=== PATIENT | female | born 1940 | race American Indian/Alaskan Native ===

== ENCOUNTER 2020-05-30 09:25 | Emergency (ER) | payer MEDICARE ==
[2020-05-30 10:23] VITALS: BP 177/78
[2020-05-30] MEDS ORDERED: ACETAMINOPHEN 325 MG TAB PO ONE (12:28)
--- NOTE | 2020-05-30 13:23 | XRay Report ---
CLINICAL DATA: left knee pain TECHNICAL DATA: Three views of the knee were obtained AP, lateral, and patella. FINDINGS: Bone mineralization is normal. There is mild narrowing of the femorotibial articulation predominantly involving the medial component. The patellofemoral articulation demonstrates severe narrowing. Osteo phyte formation is present. No evidence of a fracture or dislocation. IMPRESSION: Moderate to severe degenerative changes of the knee. Signer Name: Anand Waterman MD Signed: 05/30/2020 1:19 PM Workstation Name: [id number]
--- NOTE | 2020-05-30 13:24 | XRay Report ---
ABDOMEN 3 VIEW(S) INCLUDING CHEST INDICATION / CLINICAL INFORMATION: constipation. COMPARISON: None available. FINDINGS: SUPPORT DEVICES: None. HEART / MEDIASTINUM: No significant abnormality. LUNGS / PLEURA: Bronchovascular markings are prominent No significant pulmonary or pleural abnormalit y. No pneumothorax BOWEL: No dilated bowel. FREE AIR / EXTRALUMINAL GAS: None seen. CALCIFICATIONS: No significant abnormal calcifications. SKELETAL STRUCTURES: No significant abnormality. IMPRESSION: 1. No significant abnormality. Signer Name: Anand Waterman MD Signed: 05/30/2020 1:20 PM Workstation Name: [id number]
[2020-05-30] MEDS ORDERED: MORPHINE 2 MG/1 ML INJ IV ONE (13:33)
[2020-05-30] MEDS ORDERED: SODIUM CHLORIDE 0.9% 500 ML 500 ML IV ONE (13:33)
[2020-05-30] MEDS ORDERED: ONDANSETRON 4 MG/2 ML INJ IV ONE (13:33)
[2020-05-30 13:57] LABS: Basophils # (Auto) 0.1 K/mm3 (0.0-0.1); Basophils % (Auto) 1.2 % (0.0-1.8); Eosinophils # (Auto) 0.1 K/mm3 (0.0-0.4); Eosinophils % (Auto) 1.1 % (0.0-4.3); Hematocrit 40.8 % (30.3-42.9); Hemoglobin 13.4 gm/dl (10.1-14.3); Lymphocytes # (Auto) 2.4 K/mm3 (1.2-5.4); Lymphocytes % (Auto) 29.2 % (13.4-35.0); Mean Corpuscular HGB Conc 33 % (30-34); Monocytes # (Auto) 0.7 K/mm3 (0.0-0.8); Monocytes % (Auto) 8.4 % (0.0-7.3); Platelet Count 251 K/mm3 (140-440); Red Blood Count 5.85 M/mm3 (3.65-5.03); Red Cell Distribution Width 17.1 % (13.2-15.2)
[2020-05-30 14:10] LABS: Mean Corpuscular Volume 70 fl (79-97)
[2020-05-30 14:21] LABS: Alanine Aminotransferase 9 units/L (7-56); Albumin 4.4 g/dL (3.9-5); BUN/Creatinine Ratio 18; Blood Urea Nitrogen 14 mg/dL (7-17); Hemolysis Index 7
[2020-05-30 14:32] LABS: Bilirubin,Direct < 0.2 mg/dL (0-0.2)
[2020-05-30 15:04] LABS: Bacteria,Urine 1+ /HPF (Negative); Bilirubin,Urine NEG (Negative); Blood,Urine NEG (Negative); Color,Urine Straw (Yellow); Protein,Urine <15 mg/dL mg/dL (Negative); Urobilinogen,Urine < 2.0 mg/dL (<2.0)
--- NOTE | 2020-05-30 15:08 | Cat Scan Report ---
CT ABDOMEN AND PELVIS WITH CONTRAST HISTORY: Abdominal pain COMPARISON: None TECHNIQUE: Routine abdominal and pelvic CT exam performed following intravenous contrast administrat ion. The patient received 100 mg IV Omnipaque 300. All CT scans at this location are performed using CT dose reduction for ALARA by means of automated exposure control. FINDINGS: CT ABDOMEN: Lung Bases: No significant abnormality. Liver: No significant abnormality. Biliary: No significant abnormality. Spleen: No significant abnormality. Unenlarged. Pancreas: No significant abnormality. Adrenals: No significant abnormality. Kidneys: No significant abnormality. Lymphatics: No lymphadenopathy. Vasculature: Atherosclerotic but nonaneurysmal abdominal aorta. Bowel/Peritoneum: Nonobstructive bowel pattern. Diverticulosis without mesocolonic fat stranding. No free air. No free fluid. Appendix not visualized. No pericecal inflammation. CT PELVIC: : The uterus is surgically absent. There are no pelvic masses. Lymphatics: No lymphadenopathy. Osseous Structures: No aggressive appearing osseous lesions. Additional Findings: None IMPRESSION: 1. No acute findings. 2. Colonic diverticulosis without evidence of diverticulitis. Signer Name: Karl Davis MD Signed: 05/30/2020 3:03 PM Workstation Name: [id number]
--- NOTE | 2020-05-30 15:20 | Emergency Department Report ---
ED Abdominal Pain HPI - General Chief Complaint: Extremity Problem,Nontraumatic Stated Complaint: STOMACH PAIN/LFT KNEE PAIN Time Seen by Provider: 05/30/20 12:16 Source: patient Mode of arrival: Ambulatory Limitations: No Limitations - History of Present Illness Initial Comments: This is a 80-year-old female nontoxic, well nourished in appearance, no acute signs of distress presents to the ED with c/o of constipation and acute on chronic left knee mariajose.. Patient denies any abdominal pain and stated she had a bowel movement this morning which she stated she feels much better. Patient denies any trauma. Patient denies any numbness, tingling, fever, chills, nausea, vomiting, chest pain, shortness of breath, headache, stiff neck. Patient denies any joint swelling or joint redness. Patient denies decreased range of motion. Patient stated has decreased gait due to pain. Patient denies any diarrhea or constipation. Denies any blood in stool. Patient denies any recent travels. Patient denies any allergies or significant past medical hi story. MD Complaint: abdominal pain -: days(s) Radiation: none Severity scale (0 -10): 0 Improves With: nothing Worsens With: nothing Associated Symptoms: constipation. denies: nausea, diarrhea, fever, chills, dysuria, hematemesis, hematochezia, melena, hematuria, anorexia, syncope - Related Data Previous Rx's Medication Instructions Recorded Last Taken Type Acetaminophen [Arthritis Pain 650 mg PO Q12H PRN #30 tablet.er 05/30/20 Unknown Rx Relief] Allergies Allergy/AdvReac Type Severity Reaction Status Date / Time No Known Allergies Allergy Unverified 05/30/20 10:21 ED Review of Systems ROS: Stated complaint: STOMACH PAIN/LFT KNEE PAIN Other details as noted in HPI Constitutional: denies: chills, fever Eyes: denies: eye pain, eye discharge, vision change ENT: denies: ear pain, throat pain Respiratory: denies: cough, shortness of breath, wheezing Cardiovascular: denies: chest pain, palpitations Endocrine: no symptoms reported Gastrointestinal: constipation. denies: abdominal pain, nausea, diarrhea, h ematemesis, melena, hematochezia Genitourinary: denies: urgency, dysuria, discharge Musculoskeletal: denies: back pain, joint swelling, arthralgia Skin: denies: rash, lesions Neurological: denies: headache, weakness, paresthesias Psychiatric: denies: anxiety, depression Hematological/Lymphatic: denies: easy bleeding, easy bruising ED Past Medical Hx - Past Medical History Previous Medical History?: No - Surgical History Past Surgical History?: No - Social History Smoking Status: Never Smoker Substance Use Type: Alcohol - Medications Home Medications: Home Medications Medication Instructions Recorded Confirmed Last Taken Type Acetaminophen [Arthritis Pain 650 mg PO Q12H PRN #30 tablet.er 05/30/20 Unknown Rx Relief] ED Physical Exam - General Limitations: No Limitations General appearance: alert, in no apparent distress - Head Head exam: Present: atraumatic, normocephalic - Eye Eye exam: Present: normal appearance - Neck Neck exam: Present: normal inspection, full ROM. Absent: tenderness, meningis mus, lymphadenopathy - Respiratory Respiratory exam: Present: normal lung sounds bilaterally. Absent: respiratory distress, wheezes, rales, rhonchi, stridor, chest wall tenderness, accessory muscle use, decreased breath sounds, prolonged expiratory - Cardiovascular Cardiovascular Exam: Present: regular rate, normal rhythm, normal heart sounds. Absent: bradycardia, tachycardia, irregular rhythm, systolic murmur, diastolic murmur, rubs, gallop - GI/Abdominal GI/Abdominal exam: Present: soft, normal bowel sounds. Absent: distended, tenderness, guarding, rebound, rigid, diminished bowel sounds - Extremities Exam Extremities exam: Present: full ROM, tenderness, normal capillary refill. Absent: joint swelling, calf tenderness - Expanded Lower Extremity Exam Left Hip exam: Present: normal inspection, full ROM. Absent: tenderness, swelling Upper Leg exam: Present: normal inspection, full ROM. Absent: tenderness, swelling Knee exam: Present: normal inspection, full ROM, tenderness, full knee extension. Absent: swelling, abrasion, laceration, ecchymosis, deformity, crepidus, dislocation, erythema, effusion, pain w/ pronation/supination, posterior draw sign, pain/laxity with valgus, pain/laxity with varus Lower Leg exam: Present: normal inspection, full ROM. Absent: tenderness, swelling, abrasion Ankle exam: Present: normal inspection, full ROM. Absent: tenderness, swelling Foot/Toe exam: Present: normal inspection, full ROM. Absent: tenderness, swelling Neuro vascular tendon exam: Present: no vascular compromise Gait: Positive: observed and normal - Back Exam Back exam: Present: normal inspection, full ROM. Absent: tenderness, CVA tenderness (R), CVA tenderness (L), muscle spasm, paraspinal tenderness, vertebral tenderness, rash noted - Neurological Exam Neurological exam: Present: alert, oriented X3, normal gait - Psychiatric Psychiatric exam: Present: normal affect, normal mood - Skin Skin exam: Present: warm, dry, intact, normal color. Absent: rash ED Course Vital Signs 05/30/20 05/30/20 10:22 13:56 Temperature 97.4 F L Pulse Rate 70 Respiratory 16 16 Rate Blood Pressure 177/78 [Right] O2 Sat by Pulse 97 Oximetry - Reevaluation(s) Reevaluation #1: 05/30/20 15:26 Patient is speaking in full sentences with no signs of distress noted. ED Medical Decision Making - Lab Data Result diagrams: 05/30/20 13:50 05/30/20 13:50 Lab Results 05/30/20 05/30/20 05/30/20 Range/Units 13:50 13:50 Unknown WBC 8.1 (4.5-11.0) K/mm3 RBC 5.85 H (3.65-5.03) M/mm3 Hgb 13.4 (10.1-14.3) gm/dl Hct 40.8 (30.3-42.9) % MCV 70 L (79-97) fl MCH 23 L (28-32) pg MCHC 33 (30-34) % RDW 17.1 H (13.2-15.2) % Plt Count 251 (140-440) K/mm3 Lymph % (Auto) 29.2 (13.4-35.0) % Hendricks % (Auto) 8.4 H (0.0-7.3) % Eos % (Auto) 1.1 (0.0-4.3) % Baso % (Auto) 1.2 (0.0-1.8) % Lymph # (Auto) 2.4 (1.2-5.4) K/mm3 Hendricks # (Auto) 0.7 (0.0-0.8) K/mm3 Eos # (Auto) 0.1 (0.0-0.4) K/mm3 Baso # (Auto) 0.1 (0.0-0.1) K/mm3 Seg Neutrophils % 60.1 (40.0-70.0) % Seg Neutrophils # 4.9 (1.8-7.7) K/mm3 Sodium 142 (137-145) mmol/L Potassium 3.4 L (3.6-5.0) mmol/L Chloride 105.6 (98-107) mmol/L Carbon Dioxide 25 (22-30) mmol/L Anion Gap 15 mmol/L BUN 14 (7-17) mg/dL Creatinine 0.8 (0.6-1.2) mg/dL Estimated GFR > 60 ml/min BUN/Creatinine Ratio 18 % Glucose 98 (65-100) mg/dL Calcium 10.0 (8.4-10.2) mg/dL Total Bilirubin 0.90 (0.1-1.2) mg/dL Direct Bilirubin < 0.2 (0-0.2) mg/dL Indirect Bilirubin 0.7 mg/dL AST 16 (5-40) units/L ALT 9 (7-56) units/L Alkaline Phosphatase 79 (35-129) units/L Total Protein 8.4 H (6.3-8.2) g/dL Albumin 4.4 (3.9-5) g/dL Albumin/Globulin Ratio 1.1 % Lipase 44 (13-60) units/L Urine Color Straw (Yellow) Urine Turbidity Clear (Clear) Urine pH 6.0 (5.0-7.0) Ur Specific Stanley 1.023 (1.003-1.030) Urine Protein <15 mg/dl (Negative) mg/dL Urine Glucose (UA) Neg (Negative) mg/dL Urine Ketones Neg (Negative) mg/dL Urine Blood Neg (Negative) Urine Nitrite Neg (Negative) Urine Bilirubin Neg (Negative) Urine Urobilinogen < 2.0 (<2.0) mg/dL Ur Leukocyte Esterase Sm (Negative) Urine WBC (Auto) 2.0 (0.0-6.0) /HPF Urine RBC (Auto) 2.0 (0.0-6.0) /HPF U Epithel Cells (Auto) 3.0 (0-13.0) /HPF Urine Bacteria (Auto) 1+ (Negative) /HPF - Radiology Data Referring Physician: BELEN CAO Patient Name: JAMAAL CUMMINGS Date of : 1940 Sex: Female Report Date: 2020-05-30 Report Status: Finalized [facility] [address] [id number] Cat Scan Report Signed Patient: JAMAAL CUMMINGS MR#: [id number] : 1940 Acct:[id number] Age/Sex: 80 / F ADM Date: 05/30/20 Loc: ED Attending Dr: Ordering Physician: BELEN CAO NP Date of Service: 05/30/20 Procedure(s): CT abdomen pelvis w con Accession Number(s): [id number] cc: BELEN CAO NP CT ABD OMEN AND PELVIS WITH CONTRAST HISTORY: Abdominal pain COMPARISON: None TECHNIQUE: Routine abdominal and pelvic CT exam performed following intravenous contrast administration. The patient received 100 mg IV Omnipaque 300. All CT scans at this location are performed using CT dose reduction for ALARA by means of automated exposure control. FINDINGS: CT ABDOMEN: Lung Bases: No significant abnormality. Liver: No significant abnormality. Biliary: No significant abnormality. Spleen: No significant abnormality. Unenlarged. Pancreas: No significant abnormality. Adrenals: No significant abnormality. Kidneys: No significant abnormality. Lymphatics: No lymphadenopathy. Vasculature: Atherosclerotic but nonaneurysmal abdominal aorta. Bowel/Peritoneum: Nonobstructive bowel pattern. Diverticulosis without mesocolonic fat stranding. No free air. No free fluid. Appendix not visualized. No pericecal inflammation. CT PELVIC: : The uterus is surgically absent. There are no pelvic masses. Lymphatics: No lymphadenopathy. Osseous Structures: No aggressive appearing osseous lesions. Additional Findings: None IMPRESSION: 1. No acute findings. 2. Colonic diverticulosis without evidence of diverticulitis. Signer Name: Karl Davis MD Signed: 05/30/2020 3:03 PM Workstation Name: [id number] Transcribed By: BEATRIZ Dictated By: Karl Davis MD Electronically Authenticated By: Karl Davis MD Signed Date/Time: 05/30/20 1503 DD/ 1501 TD/TT: Referring Physician: BELEN CAO Patient Name: JAMAAL CUMMINGS Date of : 1940 Sex: Female Report Date: 2020-05-30 Report Status: Finalized [address] [address] XRay Report Signed Patient: JAMAAL CUMMINGS MR#: [id number] : 1940 Acct:[id number] Age/Sex: 80 / F ADM Date: 05/30/20 Loc: ED Attending Dr: Ordering Physician: BELEN CAO NP Date of Service: 05/30/20 Procedure(s): XR knee 3V LT Accession Number(s): [id number] cc: BELEN CAO NP Fluoro Time In Minutes: CLINICAL DATA: left knee pain TECHNICAL DATA: Three views of the knee were obtained AP, lateral, and patella. FINDINGS: Bone mineralization is normal. There is mild narrowing of the femorotibial articulation predominantly involving the medial component. The patellofemoral articulation demonstrates severe narrowing. Osteophyte formation is present. No evidence of a fracture or dislocation. IMPRESSION: Moderate to severe degenerative changes of the knee. Signer Name: Anand Waterman MD Signed: 05/30/2020 1:19 PM Workstation Name: [id number] Transcribed By: WG Dictated By: Anand Waterman MD Electronically Authenticated By: Anand Waterman MD Signed Date/Time: 05/30/201318 DD/ 17 TD/TT: Referring Physician: BELEN CAO Patient Name: JAMAAL CUMMINGS Date of : 1940 Sex: Female Report Date: 2020-05-30 Report Status: Finalized [address] [address] XRay Report Signed Patient: JAMAAL CUMMINGS MR#: [id number] : 1940 Acct:[id number] Age/Sex: 80 / F ADM Date: 05/30/20 Loc: ED Attending Dr: Ordering Physician: BELEN CAO NP Date of Service: 05/30/20 Procedure(s): XR abd series w cxr 1V Accession Number(s): [id number] cc: BELEN CAO NP Fluoro Time In Minutes: ABDOMEN 3 VIEW(S) INCLUDING CHEST INDICATION / CLINICAL INFORMATION: constipation. COMPARISON: None available. FINDINGS: SUPPORT DEVICES: None. HEART / MEDIASTINUM: No significant abnormality. LUNGS / PLEURA: Bronchovascular markings are prominent No significant pulmonary or pleural ab normality. No pneumothorax BOWEL: No dilated bowel. FREE AIR / EXTRALUMINAL GAS: None seen. CALCIFICATIONS: No significant abnormal calcifications. SKELETAL STRUCTURES: No significant abnormality. IMPRESSION: 1. No significant abnormality. Signer Name: Anand Waterman MD Signed: 05/30/2020 1:20 PM Workstation Name: [id number] Transcribed By: WG Dictated By: Anand Waterman MD Electronically Authenticated By: Anand Waterman MD Signed Date/Time: 05/30/20 132 DD/ 18 TD/TT: - Medical Decision Making Patient was presents with left knee arthritis and constipation. Patient is stable and was examined by me. Labs unremarkable. CT and x-rays unremarkable. Patient is notified of the results with no questions noted by the patient. P atient received Tylenol which stated symptoms are improving subsided. Patient was instructed to follow-up with a primary care and orthopedic doctor in 3-5 days or if symptoms worsen and continue return to emergency room as soon as possible. At time of discharge, the patient does not seem toxic or ill in appearance. No acute signs of distress noted. Patient agrees to discharge treatment plan of care. No further questions noted by the patient. Critical care attestation.: If time is entered above; I have spent that time in minutes in the direct care of this critically ill patient, excluding procedure time. 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 Prescriptions: Acetaminophen [Arthritis Pain Relief] 650 mg PO Q12H PRN #30 tablet.er PRN Reason: Pain , Severe (7-10) Referrals: ATIYA CABRERA MD [Primary Care Provider] - 3-5 Days PRIMARY CAREMD [Referring] - 3-5 Days SAMY ERAZO MD [Staff Physician] - 3-5 Days SHOLA DIAZ MD [Staff Physician] - 3-5 Days
== END 2020-05-30 15:30 | disposition home or self-care (01) ==
LOC: ED 09:25
DX: M17.12 Unilateral primary osteoarthritis, left knee (principal); K59.00 Constipation, unspecified; Z79.899 Other long term (current) drug therapy
CPT/HCPCS: 36415; 73562; 74022; 74177; 80048; 80076; 81001; 83690; 85025; 99284; J7040; Q9967; J2270; J2405